=== PATIENT | female | born 1995 | race Caucasian/White ===

== ENCOUNTER 2019-03-26 20:24 | Emergency (ER) | payer SELFPAY ==
[~2019-03-26] VITALS: Ht 162.6 cm; Wt 54.4 kg
--- NOTE | 2019-03-26 20:58 | NUR ---
DR. BARON AT BEDSIDE FOR MSE.
[2019-03-26] MEDS: CLINDAMYCIN HCL 150 MG CAPSULE PO ONE (21:07)
[2019-03-26] MEDS ORDERED: CLINDAMYCIN HCL 150 MG CAPSULE ONE (21:09)
--- NOTE | 2019-03-26 21:10 | NUR ---
Patient discharged to home in stable conditon. Written and verbal after care instructions given. Patient verbalizes understanding of instructions. PATIENT LEFT WITH STABLE GAIT.
[2019-03-26 21:11] VITALS: BP 121/83
== END 2019-03-26 21:12 | disposition home or self-care (01) ==
LOC: ER 20:27
DX: L98.499 Non-pressure chronic ulcer of skin of other sites with unspecified severity (principal); F15.10 Other stimulant abuse, uncomplicated; J45.909 Unspecified asthma, uncomplicated; F17.290 Nicotine dependence, other tobacco product, uncomplicated; F12.10 Cannabis abuse, uncomplicated; Z71.6 Tobacco abuse counseling; Z59.0 Homelessness
CPT/HCPCS: A4663